=== PATIENT | female | born 1980 | race Caucasian/White ===

== ENCOUNTER 2016-10-15 14:12 | Emergency (ER) | payer OTHER ==
[~2016-10-15] VITALS: Ht 160 cm; Wt 49.3 kg
[~2016-10-15 14:12] MED LIST: ABILIFY20 MG PO; ADDERALL XR 3030 MG PO; ALPRAZOLAM1 MG PO; ALPRAZOLAM2 MG PO; Effexor XR PO; MACROBID100 MG PO; SEROQUEL12.5 MG PO; SEROQUEL50 MG PO; TRAZODONE HCL150 MG PO; ULTRAM50 MG PO
[2016-10-15 14:54] LABS: MCH 29.7 PG (29.0-34.0); MCHC 33.4 G/DL (30.0-36.0); MCV 88.7 FL (83-99); MEAN PLAT.VOLUME 10.3 uM^3 (9.5-12.4); PLATELET COUNT 210 K/uL (156-360); RBC DIS.WIDTH-CV 12.5 % (11.8-14.6); RBC DIS.WIDTH-SD 40.8 % (39-53); RED BLOOD COUNT 4.62 M/uL (3.80-5.20); WHITE BLOOD COUNT 5.8 K/uL (4.1-10.2)
[2016-10-15 15:09] LABS: CHLORIDE 106 mEq/L (99-109); POTASSIUM 3.6 mEq/L (3.7-5.4); SODIUM 139 mEq/L (136-147)
[2016-10-15 15:11] LABS: GLUCOSE 88 mg/dL (70-99)
[2016-10-15 15:12] LABS: ANION GAP 11 MEQ/L (2-14)
[2016-10-15 15:13] LABS: TOTAL BILIRUBIN 0.6 mg/dL (0.0-1.0)
[2016-10-15 15:14] LABS: SERUM ETHYL ALCOHOL < 10 mg/dL
[2016-10-15 15:15] LABS: ALKALINE PHOSPHATASE 85 IU/L (3-129); GFR ESTIMATE (CALCULATED) > 59 mL/min/
[2016-10-15 15:16] LABS: UREA NITROGEN (BUN) 8 mg/dL (9-23)
[2016-10-15 16:09] VITALS: BP 126/78
== END 2016-10-15 16:09 | disposition home or self-care (01) ==
LOC: EME 14:12
PROVIDERS: Emergency Medicine
DX: F43.20 Adjustment disorder, unspecified (principal); F31.9 Bipolar disorder, unspecified; F17.200 Nicotine dependence, unspecified, uncomplicated; Z87.442 Personal history of urinary calculi
CPT/HCPCS: 80053; 81003; 85027; 90837; 99281; 99284; G0480